=== PATIENT | male | born 1970 | race Caucasian/White ===

== ENCOUNTER 2018-12-16 09:24 | Inpatient (IN) | payer OTHER ==
[~2018-12-16] VITALS: Ht 175.3 cm; Wt 86.2 kg
[2018-12-25] MEDS ORDERED: PERCOCET 5-3251 EACH PO (13:55)
[2018-12-25] MEDS ORDERED: INTESTINEX680 M1 PO (13:55)
== END 2018-12-25 14:16 | disposition home or self-care (01) | DRG 331 ==
LOC: O/R 12-22 06:21 → SURH 12-22 06:21
PROVIDERS: ADMIT Surgery
PROC: 07TB4ZZ Resection of Mesenteric Lymphatic, Percutaneous Endoscopic Approach (ICD-10-PCS; 2018-12-22)
PROC: 0DJD8ZZ Inspection of Lower Intestinal Tract, Via Natural or Artificial Opening Endoscopic (ICD-10-PCS; 2018-12-22)
PROC: 0DTN4ZZ Resection of Sigmoid Colon, Percutaneous Endoscopic Approach (ICD-10-PCS; principal; 2018-12-22 07:00)
DX: C18.7 Malignant neoplasm of sigmoid colon (principal)